=== PATIENT | male | born 1980 | race Caucasian/White ===

== ENCOUNTER 2016-12-27 21:15 | Emergency (ER) | payer BC ==
--- NOTE | 2016-12-27 21:19 | PDOC ---
History of Present Illness - General History Source: Patient Exam Limitations: No Limitations - History of Present Illness Initial Comments: The patient is a 36 year old male with no significant past medical history who presents to the ED s/p fall 9 days ago. Patient was standing on a chair in the kitchen when he fell and the chair struck the side of his right knee. Patient states the pain radiates down to the foot. He describes the pain as 3/10 in severity. Patient is ambulatory but states he has been unable to regular activities without pain, like driving a vehicle or kicking a ball. Patient denies head trauma, neck pain, back pain, hip pain. Patient denies fever , chills, nausea, vomiting. Patient denies any surgical hx. Patient is otherwise healthy. <Gregory Luis - Last Filed: 12/27/16 22:09> <Olu Morillo - Last Filed: 12/27/16 22:31> - General Chief Complaint: Pain Stated Complaint: RT KNEE PAIN Time Seen by Provider: 12/27/16 21:18 Past History <Gregory Luis - Last Filed: 12/27/16 22:09> - Past Medical History Diabetes: No HTN: No - Immunization History Immunization Up to Date: Yes - Psycho/Social/Smoking Cessation Hx Anxiety: No Suicidal Ideation: No Smoking Status: No Smoking History: Never smoked Have you smoked in the past 12 months: No Number of Cigarettes Smoked Daily: 0 Hx Alcohol Use: Yes (SOCIAL) Substance Use Type: None <Olu Morillo - Last Filed: 12/27/16 22:31> - Past Medical History Allergies/Adverse Reactions: Allergies Allergy/AdvReac Type Severity Reaction Status Date / Time No Known Allergies Allergy Verified 12/26/13 17:07 Home Medications: Ambulatory Orders NK [No Known Home Medication] 01/03/14 Review of Systems - Review of Systems Able to Perform ROS?: Yes Comments:: 12/27/16 22:09 Constitutional - Pt denies Fever, Chills, weakness, HEENT: denies vision changes, sore throat Respiratory: Denies cough, sob, hemoptysis Cardiac: denies chest pain, palpitations, light headedness, leg swelling Abd/GI: denies abd pain, nausea, vomiting, blood per rectum, melena, diarrhea : denies dysuria, frequency, discharge Musculskelatal + right knee pain radiating to the foot. skin - denies bruising, erythema, rash neurological: denies headache, numbness, focal weakness, tingling, ataxia, weakness hematologic: denies anemia, easy bruising, easy bleeding <Gregory Luis - Last Filed: 12/27/16 22:09> *Physical Exam - Vital Signs Last Vital Signs Temp Pulse Resp BP Pulse Ox 98.6 F 63 16 125/75 98 12/27/16 21:17 12/27/16 21:17 12/27/16 21:17 12/27/16 21:17 12/27/16 21:17 <Gregory Luis - Last Filed: 12/27/16 22:09> - Physical Exam Comments: 12/27/16 21:33 GENERAL: The patient is awake, alert, and fully oriented, Nontoxic - in no acute distress. EXTREMITIES: R knee exam: tenderness to medial aspect of knee with ecchymosis, neg anterior drawer/posterior drawer/valgus/varus stress. SKIN: Warm, Dry, normal turgor, bruising noted on the medial ankle of R leg <Olu Morillo - Last Filed: 12/27/16 22:31> Medical Decision Making - Medical Decision Making 12/27/16 21:43 [id number] presents with R knee pain s/p fall 10 days ago, he slipped off the chair that fell and struck his knee on the edge of the chair. pt notes the pain is worse with certian movements such as kicking a ball . pt denies any pain when walking, no lower leg pain/calf tenderness or swelling. pt noticed some bruising on the medial aspect of his foot. on exam he has mild tenderness on the medial knee, normal ROM, +mild pain with external rotation of knee will refer pt to fu with ortho, supportive management at home xray of knee to r/o fx will give motrin for pain 12/27/16 22:25 no acute pathology noted on xray will dc with supportive care and ortho fu if not improved I discussed the physical exam findings, ancillary test results and final diagnoses with the patient. I answered all of the patient's questions. The patient was satisfied with the care received and felt comfortable with the discharge plan and treatment plan. The patient will call their primary care physician within 24 hours to arrange follow-up and will return to the Emergency Department with any new, persistent or worsening symptoms. <Olu Morillo - Last Filed: 12/27/16 22:31> *DC/Admit/Observation/Transfer - Attestations Scribe Attestion: 12/27/16 22:10 Documentation prepared by Gregory Luis, acting as emergency medical dispatcher for Olu Morillo MD, MD. <Gregory Luis - Last Filed: 12/27/16 22:09> - Discharge Dispostion Admit: No <Olu Morillo - Last Filed: 12/27/16 22:31> Diagnosis at time of Disposition: Knee pain, right Qualifiers: Chronicity: acute Qualified Code(s): M25.561 - Pain in right knee - Discharge Dispostion Disposition: HOME Condition at time of disposition: Stable - Referrals Referrals: Day Schultz MD [Primary Care Provider] - Juan Diego Scott MD [Staff Physician] - - Patient Instructions Printed Discharge Instructions: DI for Knee Pain Additional Instructions: Return to the emergency department immediately with ANY new, persistent or worsening symptoms. Avoid any movements that may worsen your knee pain. Take ibuprofen/tylenol as needed for pain. You MUST call and follow up with your orthopedics if pain is not significantly improved within 3-4 days. Results were discussed with you. Please make sure your doctor reviews the results of your emergency evaluation. Print Language: WOLOF - Post Discharge Activity Work/School Note: Back to Work
[2016-12-27 21:26] VITALS: BP 125/75; PULSE 63; TEMP 98.6; BMI 26.9
[2016-12-27] MEDS ORDERED: IBUPROFEN 400 MG TABLET (FP) PO ONE (22:17)
[2016-12-27] MEDS ORDERED: IBUPROFEN 600 MG TABLET (FP) PO ONE (22:18)
== END 2016-12-27 22:34 | disposition home or self-care (01) ==
LOC: FER 21:15
DX: M25.561 Pain in right knee (principal); W20.8XXA Other cause of strike by thrown, projected or falling object, initial encounter; Y93.89 Activity, other specified; Y92.000 Kitchen of unspecified non-institutional (private) residence as the place of occurrence of the external cause
CPT/HCPCS: 73562-TC-RT; 99282-25

== ENCOUNTER 2021-03-23 19:20 | Emergency (ER) | payer OTHER, BC ==
[2021-03-23 19:29] VITALS: BP 132/84; PULSE 67; TEMP 98.8; BMI 29.0
[2021-03-23] MEDS ORDERED: IBUPROFEN 600 MG TABLET (FP) PO ONE ×2 (20:39→20:41)
== END 2021-03-23 20:43 | disposition home or self-care (01) ==
LOC: FER 19:20
DX: M25.562 Pain in left knee (principal)
CPT/HCPCS: 73562-TC-LT-FY; 99284-25